=== PATIENT | female | born 1935 | race Caucasian/White ===

== ENCOUNTER 2020-03-12 16:12 | Inpatient (IN) | payer MEDICARE, OTHER ==
[~2020-03-12] VITALS: Ht 157.5 cm; Wt 54.8 kg
[~2020-03-12 16:12] MED LIST: BISHYD2.5 PO; TIZA4 PO
[2020-03-12 16:40] LABS: BASOPHILS ABSOLUTE AUTO 0.06 K/mm3 (0.00-0.23); BASOPHILS PERCENT AUTO 1 % (0-2); EOSINOPHILS ABSOLUTE AUTO 0.08 K/mm3 (0.00-0.68); EOSINOPHILS PERCENT AUTO 1 % (0-6); Hematocrit 37.6 % (33.0-51.0); Hemoglobin 11.5 g/dL (11.5-16.0); IMMATURE GRAN ABSOLUTE AUTO 0.04 K/mm3 (0.00-0.10); IMMATURE GRAN PERCENT AUTO 0 % (0-1); LYMPHOCYTES ABSOLUTE AUTO 1.36 K/mm3 (0.84-5.20); LYMPHOCYTES PERCENT AUTO 15 % (21-46); MONOCYTES ABSOLUTE AUTO 0.67 K/mm3 (0.16-1.47); MONOCYTES PERCENT AUTO 7 % (4-13); Mean Corpuscular HGB 30.2 pg (26.0-34.0); Mean Corpuscular HGB Conc 30.6 g/dL (31.5-36.5); Mean Corpuscular Volume 99 fL (80-100); Mean Platelet Volume 10.4 fL (9.1-12.4); NEUTROPHILS ABSOLUTE AUTO 6.87 K/mm3 (1.96-9.15); NEUTROPHILS PERCENT AUTO 76 % (41-73); Platelet Count 302 K/mm3 (150-400); RDW Coefficient Variation 15.1 % (11.7-14.2); RDW Standard Deviation 54.7 fL (35.1-46.3); Red Blood Cell Count 3.81 M/mm3 (3.80-5.20); White Blood Cell Count 9.08 K/mm3 (4.00-11.30)
[2020-03-12] MEDS ORDERED: TOPI25 PO (16:40)
[2020-03-12] MEDS ORDERED: GABA300 PO (16:40)
[2020-03-12 16:55] LABS: International Normalized Ratio 0.96; Prothrombin Time Results 10.3 Sec (9.7-11.5)
[2020-03-12 16:59] LABS: Alanine Aminotransfer (ALT/SGP 14 U/L (12-78); Albumin, Blood 3.5 g/dL (3.4-5.0); Albumin/Globulin Ratio 1.2 (0.8-1.8); Alk Phos 139 U/L (50-136); Anion Gap 5 mmol/L (6-16); Aspartate Aminotrans (AST/SGOT 10 U/L (12-37); Bilirubin, Total 0.3 mg/dL (0.1-1.0); Blood Urea Nitrogen 16 mg/dL (8-24); Bun/Creatinine Ratio 18.8 (12.0-20.0); CO2, Blood 27 mmol/L (21-32); Calcium, Blood 8.9 mg/dL (8.5-10.1); Chloride, Blood 112 mmol/L (98-108); Creatinine, Blood 0.85 mg/dL (0.40-1.00); Globulin, Blood 2.9 g/dL (2.2-4.0); Glomerular Filtration Rate >60 (60-); Glucose, Blood 98 mg/dL (70-99); Magnesium, Blood 2.2 mg/dL (1.6-2.4); Potassium, Blood 3.5 mmol/L (3.5-5.5); Sodium, Blood 144 mmol/L (136-145); Total Protein, Blood 6.4 g/dL (6.4-8.2); Troponin I <0.015 ng/mL (0.000-0.040)
[2020-03-12] MEDS ORDERED: Aspir 8181 MG PO (17:13)
[2020-03-12] MEDS ORDERED: Vitamin D2000 UNIT PO (17:13)
[2020-03-12] MEDS ORDERED: DOC250 PO (17:14)
[2020-03-12] MEDS ORDERED: PRESERVISION A1 EACH PO (17:14)
[2020-03-12] MEDS ORDERED: TOPI50 PO (17:14)
[2020-03-12] MEDS ORDERED: METO25 PO (17:15)
[2020-03-13 00:44] LABS: Hematocrit 36.9 % (33.0-51.0); Hemoglobin 11.2 g/dL (11.5-16.0); Mean Corpuscular HGB 30.5 pg (26.0-34.0); Mean Corpuscular HGB Conc 30.4 g/dL (31.5-36.5); Mean Corpuscular Volume 101 fL (80-100); Mean Platelet Volume 9.9 fL (9.1-12.4); Platelet Count 287 K/mm3 (150-400); RDW Coefficient Variation 15.2 % (11.7-14.2); RDW Standard Deviation 57.1 fL (35.1-46.3); Red Blood Cell Count 3.67 M/mm3 (3.80-5.20); White Blood Cell Count 8.41 K/mm3 (4.00-11.30)
[2020-03-13 01:03] LABS: CPK Creatine Kinase 44 U/L (26-193); Creatine Kinase MB 1.8 ng/mL (0.0-3.6); Creatine Kinase MB Index 4.1 (0.0-4.0); Troponin I <0.015 ng/mL (0.000-0.040)
[2020-03-13 01:10] LABS: Anion Gap 3 mmol/L (6-16); Blood Urea Nitrogen 15 mg/dL (8-24); Bun/Creatinine Ratio 16.8 (12.0-20.0); CO2, Blood 27 mmol/L (21-32); Calcium, Blood 9.1 mg/dL (8.5-10.1); Chloride, Blood 116 mmol/L (98-108); Creatinine, Blood 0.89 mg/dL (0.40-1.00); Glomerular Filtration Rate >60 (60-); Glucose, Blood 87 mg/dL (70-99); Potassium, Blood 3.9 mmol/L (3.5-5.5); Sodium, Blood 146 mmol/L (136-145)
--- NOTE | 2020-03-13 06:24 | NUR ---
SHIFT SUMMARY PT TRANPORTED TO UNIT FROM ED AT BEGINNING OF SHIFT. PT NO LONGER ON CARDIZEM GTT D/T BRADYCARDIA. PT HR REMAINED IN 50'S. PHYSICIAN AWARE. PT'S BP STABLE. PT REPORTS NO CURRENT CP OR PRESSURE. PT ALERT AND ORIENTED. SBA TO BATHROOM NEEDED. PT REPORTS COUGH THAT IS CHRONIC. RESPIRATORY CARE ORDERED. WILL CONTINUE TO MONITOR UNTIL REPORT GIVEN TO DAYSHIFT RN.
[2020-03-13 09:16] LABS: CPK Creatine Kinase 39 U/L (26-193); Creatine Kinase MB 1.8 ng/mL (0.0-3.6); Creatine Kinase MB Index 4.6 (0.0-4.0); Troponin I <0.015 ng/mL (0.000-0.040)
--- NOTE | 2020-03-13 11:04 | NUR ---
Echocardiogram performed.
[2020-03-13] MEDS ORDERED: ALBU90OI INH (12:17)
--- NOTE | 2020-03-13 13:15 | NUR ---
DISCHARGE: PT DISCHARGED AT THIS TIME. NO ACUTE DISTRESS NOTED. PT ESCORTED OUT BY WHEELCHAIR BY PCT.
== END 2020-03-13 13:04 | disposition home or self-care (01) | DRG 310 ==
LOC: ER 16:12 → PCU 21:40
PROVIDERS: Emergency Medicine; ADMIT Internal Medicine
DX: I48.0 Paroxysmal atrial fibrillation (principal); Z95.5 Presence of coronary angioplasty implant and graft; I25.10 Atherosclerotic heart disease of native coronary artery without angina pectoris; F17.210 Nicotine dependence, cigarettes, uncomplicated; I95.9 Hypotension, unspecified; M79.2 Neuralgia and neuritis, unspecified; I10 Essential (primary) hypertension; J44.9 Chronic obstructive pulmonary disease, unspecified; M54.9 Dorsalgia, unspecified; G89.29 Other chronic pain
CPT/HCPCS: 36415; 71046; 80048; 80053; 82550; 82553; 83735; 83880; 84484; 85025; 85027; 85610; 93005; 93010; 93306; 94667; 96361; 96365; 96366; 96375; 99285-25; A9270; A9270-GY; J1650; J7030